=== PATIENT | female | born 1995 | race Caucasian/White ===

== ENCOUNTER 2017-06-17 16:31 | Emergency (ER) | payer OTHER ==
[~2017-06-17] VITALS: Ht 157.5 cm; Wt 52.2 kg
[2017-06-17] MEDS ORDERED: ACETAMINOPHEN ES 500 MG TABLET PO ONE (17:00)
[2017-06-17] MEDS ORDERED: IBUPROFEN 600 MG TABLET PO ONE ×2 (17:00)
[2017-06-17] MEDS ORDERED: ACETAMINOPHEN ES 500 MG TABLET ONE (17:00)
[2017-06-17] MEDS ORDERED: METOCLOPRAMIDE HCL 10 MG/2 ML VIAL IM/IV ONE (17:00)
[2017-06-17] MEDS ORDERED: METOCLOPRAMIDE HCL 10 MG/2 ML VIAL ONE (17:00)
--- NOTE | 2017-06-17 17:00 | NUR ---
PT TO ED DT HEADACHE SINCE THIS MORNING, DID NOT TAKE HOME MEDICATION. VSS
[2017-06-17 18:09] VITALS: BP 111/77
--- NOTE | 2017-06-17 18:09 | NUR ---
Patient discharged to home in stable condition. Written and verbal after care instructions given. Patient verbalizes understanding of instruction.
== END 2017-06-17 18:10 | disposition home or self-care (01) ==
LOC: ER 16:34
DX: G43.909 Migraine, unspecified, not intractable, without status migrainosus (principal); S60.211A Contusion of right wrist, initial encounter; W22.8XXA Striking against or struck by other objects, initial encounter; Y93.89 Activity, other specified; Y92.89 Other specified places as the place of occurrence of the external cause; Y99.8 Other external cause status
CPT/HCPCS: 73110; 96372; 99284; A4606; J2765; Z7610

== ENCOUNTER 2017-09-30 23:14 | Emergency (ER) | payer OTHER ==
[~2017-09-30] VITALS: Ht 157.5 cm; Wt 52.2 kg
[2017-09-30 23:20] VITALS: BP 120/92
[2017-10-01 00:32] LABS: APPEARANCE,URINE SL CLOUDY (CLEAR); BILIRUBIN,URINE NEGATIVE (NEGATIVE); BLOOD, URINE TRACE-INTA Ery/uL (NEGATIVE); COLOR,URINE YELLOW (YELLOW); KETONES,URINE NEGATIVE (NEGATIVE); LEUKOCYTE ESTERASE ,URINE 1+ (NEGATIVE); NITRITE, URINE NEGATIVE (NEGATIVE); PROTEIN,URINE NEGATIVE (NEGATIVE); UGLUCOSE NEGATIVE (NEGATIVE); UROBILINOGEN,URINE 0.2 EU/dL (0.2)
[2017-10-01 00:48] LABS: BACTERIA,URINE 1+ /HPF (None Seen); SQUAMOUS EPITHELIAL CELL,UR Many /HPF (None Seen)
[2017-10-01] MEDS ORDERED: AZITHROMYCIN 250 MG TABLET PO ONE (01:00)
[2017-10-01] MEDS ORDERED: CEFTRIAXONE 500 MG VIAL IM ONE (01:00)
[2017-10-01] MEDS ORDERED: METRONIDAZOLE 500 MG TABLET PO ONE (01:00)
[2017-10-01] MEDS ORDERED: METRONIDAZOLE 250 MG TABLET ONE (01:02)
[2017-10-01] MEDS ORDERED: CEFTRIAXONE 500 MG VIAL ONE (01:03)
[2017-10-01] MEDS ORDERED: AZITHROMYCIN 250 MG TABLET ONE ×2 (01:03→01:18)
[2017-10-01] MEDS ORDERED: LIDOCAINE /MPF 1% VIAL 5 ML VIAL ONE (01:03)
[2017-10-01] MEDS ORDERED: METRONIDAZOLE 500 MG TABLET ONE ×2 (01:10→01:12)
== END 2017-10-01 01:40 | disposition home or self-care (01) ==
LOC: ER 23:18
DX: N39.0 Urinary tract infection, site not specified (principal); Z20.2 Contact with and (suspected) exposure to infections with a predominantly sexual mode of transmission
CPT/HCPCS: 81000-TC; 84703-TC; 87086-TC; 87186-TC; 87491; 87591; A4606; J0696; J3490; Z7610